=== PATIENT | male | born 1965 | race Caucasian/White ===

== ENCOUNTER 2017-06-16 12:03 | Emergency (ER) | payer OTHER ==
[2017-06-16] MEDS: IBUPROFEN 800 MG TAB PO (13:33)
== END 2017-06-16 13:52 | disposition home or self-care (01) ==
LOC: PHEFT 12:03
DX: M25.561 Pain in right knee (principal); M25.461 Effusion, right knee; F17.290 Nicotine dependence, other tobacco product, uncomplicated; Z88.0 Allergy status to penicillin
CPT/HCPCS: 73564; 99283

== ENCOUNTER 2017-07-23 19:07 | Emergency (ER) | payer OTHER ==
[~2017-07-23] VITALS: Ht 177.8 cm; Wt 105.0 kg
[~2017-07-23 19:07] MED LIST: IBUP1TAB7 PO
[2017-07-23 19:27] VITALS: BP 140/110; PULSE 95; RESP 20; TEMP 98.6; O2SAT 98
--- NOTE | 2017-07-23 19:28 | PD ---
HPI Chief Complaint: BA Time Seen by Provider: 19:23 Travel History International Travel<30 days: No Contact w/Intl Traveler<30days: No Traveled to known affect area: No History of Present Illness HPI This is a 52-year-old male who presents under Mann act initially by the Police Department. According to his paperwork he has been feeling suicidal. Specifically he has had a plan to light himself on fire with gasoline. Symptoms are moderate, duration 4 months, no aggravating or relieving factors, no associated signs or symptoms. He reports daily cocaine use, alcohol use. He denies any auditory visual hallucinations, homicidal ideation. He does not currently have a psychiatrist. He has no acute medical complaints at this time. [facility] Past Medical History Diminished Hearing: No Psychiatric: Yes (esther acted in past) Social History Alcohol Use: Yes (4 pk of beer daily) Tobacco Use: Yes (cigars) Substance Use: Yes (PSA) Allergies-Medications (Allergen,Severity, Reaction): Coded Allergies: Penicillins (Verified Allergy, Unknown, 07/23/17) alprazolam (Verified Allergy, Unknown, 07/23/17) Reported Meds & Prescriptions Reported Meds & Active Scripts Active Review of Systems Except as stated in HPI: all other systems reviewed are Neg Physical Exam Narrative GENERAL: This is a disheveled male who is in no acute distress. SKIN: Warm and dry. HEAD: Atraumatic. Normocephalic. EYES: Pupils equal and round. No scleral icterus. No injection or drainage. ENT: No nasal bleeding or discharge. Mucous membranes pink and moist. NECK: Trachea midline. No JVD. CARDIOVASCULAR: Regular rate and rhythm. No murmur appreciated. RESPIRATORY: No accessory muscle use. Some wheezing noted bilaterally. GASTROINTESTINAL: Abdomen soft, non-tender, nondistended. Hepatic and splenic margins not palpable. MUSCULOSKELETAL: No obvious deformities. Left leg amputation noted. NEUROLOGICAL: Awake and alert. No obvious cranial nerve deficits. Motor grossly within normal limits. Normal speech. PSYCHIATRIC: Appropriate mood and affect; insight and judgment normal. Data Data Last Documented VS Vital Signs Date Time Temp Pulse Resp B/P (MAP) Pulse Ox O2 Delivery O2 Flow Rate FiO2 07/23/17 19:27 98.6 95 20 140/110 (120) 98 Orders Orders Complete Blood Count With Diff (07/23/17 19:23) Comprehensive Metabolic Panel (07/23/17 19:23) Thyroid Stimulating Hormone (07/23/17 19:23) Psych Screen (07/23/17 19:23) Drug Screen, Random Urine (07/23/17 19:23) Alcohol (Ethanol) (07/23/17 19:23) Salicylates (Aspirin) (07/23/17 19:23) Tylenol (Acetaminophen) (07/23/17 19:23) Chest, Single Ap (07/23/17 19:29) Albuterol-Ipratropium Neb (Duoneb Neb) (07/23/17 19:30) Tylenol (Acetaminophen) (07/23/17 20:12) Labs Laboratory Tests Test 07/23/17 19:20 White Blood Count 8.7 TH/MM3 Red Blood Count 5.78 MIL/MM3 Hemoglobin 18.0 GM/DL Hematocrit 50.9 % Mean Corpuscular Volume 88.2 FL Mean Corpuscular Hemoglobin 31.1 PG Mean Corpuscular Hemoglobin Concent 35.3 % Red Cell Distribution Width 14.7 % Platelet Count 275 TH/MM3 Mean Platelet Volume 10.7 FL Neutrophils (%) (Auto) 59.2 % Lymphocytes (%) (Auto) 30.3 % Monocytes (%) (Auto) 7.3 % Eosinophils (%) (Auto) 2.7 % Basophils (%) (Auto) 0.5 % Neutrophils # (Auto) 5.1 TH/MM3 Lymphocytes # (Auto) 2.6 TH/MM3 Monocytes # (Auto) 0.6 TH/MM3 Eosinophils # (Auto) 0.2 TH/MM3 Basophils # (Auto) 0.0 TH/MM3 CBC Comment DIFF FINAL Differential Comment Blood Urea Nitrogen 12 MG/DL Creatinine 0.98 MG/DL Random Glucose 88 MG/DL Total Protein 7.5 GM/DL Albumin 4.0 GM/DL Calcium Level 9.6 MG/DL Alkaline Phosphatase 85 U/L Aspartate Amino Transf (AST/SGOT) 17 U/L Alanine Aminotransferase (ALT/SGPT) 23 U/L Total Bilirubin 0.4 MG/DL Sodium Level 140 MEQ/L Potassium Level 3.4 MEQ/L Chloride Level 106 MEQ/L Carbon Dioxide Level 19.7 MEQ/L Anion Gap 14 MEQ/L Estimat Glomerular Filtration Rate 80 ML/MIN Thyroid Stimulating Hormone 3rd Gen 1.250 uIU/ML Salicylates Level 6.5 MG/DL Acetaminophen Level LESS THAN 2.0 MCG/ML Ethyl Alcohol Level 40 MG/DL MDM Medical Decision Making Medical Screen Exam Complete: Yes Emergency Medical Condition: Yes Medical Record Reviewed: Yes Differential Diagnosis Major depressive disorder, depressive disorder not otherwise specified, acute psychosis, substance-induced mood disorder, adjustment reaction Narrative Course 52-year-old male presents under Mann act for psychiatric evaluation. Mental health screening discussed with the patient. Psychiatric screen ordered. The patient is medically clear for psychiatric disposition. Diagnosis Primary Impression: Medical clearance for psychiatric admission Jaron Fofana Jul 23, 2017 19:28
[2017-07-23] MEDS: RESP: ALBUTEROL 2.5 MG/IPRATROPIUM 0.5 MG NEB (SCH) INH ×2 (19:30→19:45)
--- NOTE | 2017-07-23 20:05 | RADRPT ---
EXAM DATE: 07/23/2017 7:54 PM EDT AGE/SEX: 52 years / Male INDICATIONS: Wheezing. CLINICAL DATA: This is the patient's initial encounter. Patient reports that signs and symptoms have been present for 1 day and indicates a pain score of 0/10. MEDICAL/SURGICAL HISTORY: . Smoker. Chronic drug user (cocaine) . Left leg amputated at the kn ee down. COMPARISON: None. FINDINGS: A single AP view of the chest demonstrates the lungs to be symmetrically aerated without evidence of mass, infiltrate or effusion. The cardiomediastinal contours are unremarkable. Osseous structures a re intact. CONCLUSION: Negative examination. Electronically signed by: Maikol Castro MD 07/23/2017 8:04 PM EDT
[2017-07-23 20:52] LABS: AUTOMATED NEUTROPHIL # 5.1 TH/MM3 (1.8-7.7); BASOPHIL % 0.5 % (0.0-2.0); EOSINOPHIL # 0.2 TH/MM3 (0-0.4); EOSINOPHIL % 2.7 % (0.0-4.0); HEMATOCRIT 50.9 % (39.0-51.0); LYMPH % 30.3 % (9.0-44.0); LYMPHOCYTE # 2.6 TH/MM3 (1.0-4.8); MEAN CELL VOLUME 88.2 FL (80.0-100.0); MEAN CORPUSCULAR HEMOGLOBIN 31.1 PG (27.0-34.0); MEAN CORPUSCULAR HGB CONC 35.3 % (32.0-36.0); MEAN PLATELET VOLUME 10.7 FL (7.0-11.0); MONO % 7.3 % (0.0-8.0); MONOCYTE # 0.6 TH/MM3 (0-0.9); NEUT % 59.2 % (16.0-70.0); PLATELET COUNT 275 TH/MM3 (150-450); RED BLOOD COUNT 5.78 MIL/MM3 (4.50-5.90); RED CELL DISTRIBUTION WIDTH 14.7 % (11.6-17.2); WHITE BLOOD COUNT 8.7 TH/MM3 (4.0-11.0)
[2017-07-23 21:12] LABS: AST (GOT) 17 U/L (15-37); BICARBONATE 19.7 MEQ/L (21.0-32.0); BLOOD UREA NITROGEN 12 MG/DL (7-18); CALCIUM 9.6 MG/DL (8.5-10.1); CHLORIDE 106 MEQ/L (98-107); CREATININE 0.98 MG/DL (0.60-1.30); GLOMERULAR FILTRATION RATE 80 ML/MIN (>89); GLUCOSE,RANDOM 88 MG/DL (74-106); SODIUM (NA) 140 MEQ/L (136-145)
[2017-07-23 21:23] LABS: ALKALINE PHOSPHATASE 85 U/L (45-117); ALT (GPT) 23 U/L (12-78); TOTAL BILIRUBIN ADULT 0.4 MG/DL (0.2-1.0); TOTAL PROTEIN 7.5 GM/DL (6.4-8.2)
[2017-07-23 21:27] LABS: ACETAMINOPHEN LESS THAN 2.0 MCG/ML (10.0-30.0)
[2017-07-24 03:25] VITALS: BP 142/81; PULSE 78; RESP 16; TEMP 98.5; O2SAT 96
[2017-07-24 06:30] VITALS: BP 132/78; PULSE 80; RESP 18; TEMP 98.6; O2SAT 97
--- NOTE | 2017-07-24 12:03 | PD ---
History of Present Illness Chief Complaint: Suicide Ideation/Attempt Time Seen by Provider: 11:55 Travel History International Travel<30 Days: No Contact w/Intl Traveler<30days: No Known affected area: No Legal Status Legal Status: Mann Act Mann Act Signed By: Deedee See Mann Act Comment: 2017 @ 1841 History of Present Illness: History of Present Illness HPI The patient is a 52 years old male,with psychiatric history of antisocial personality disorder, cocaine use disorder, drug-seeking behavior, who he is known in the psychiatric department, he was last evaluated in April 2017 , who presents to the emergency department under Mann act initiated by law enforcement. The affidavit alleges that the patient made suicidal statements about wanting to kill himself and that he wanted to light himself on fire with gasoline. He did not make any attempt to harm himself. EMR reviewed. Patient was seen and evaluated in April 2017. At that time it was determined that the patient was malingering in order to obtain residential. Current toxicology is positive for cocaine and blood alcohol level of 40. Patient is seen. francisco Jones present. Patient is alert. He is demanding to have his right hand looked at and "to be taken to the hand doctor on the second floor." He is also demanding to have his left leg looked at. When I explained to him that he can follow up with his concerns on an outpatient basis he states " I'm just going to go to [facility] ".The patient demands to have food brought to him "right now "as well. There is no evidence of psychosis. I begin to discuss with him discharge and he states ' I am not leaving here. Just trespass me. I will go to intermediate". When informed that he will be discharged he demands to have a ride back to his camper since he does not have his wheel chair. The patient continues to present various demands including needing a respiratory treatment and states " that's why I came here for my breathing". Patient is obviously attempting to find any possible reason to remain here in the hospital. He threatens that he" may go out and get some gasoline and pour it on myself ", however the patient assist of making any attempts at harming himself and continues to request food, a set of crutches, a taxi ride back to his camper as well as assistance for various medical issues. PFSH Past Medical History Hx Anticoagulant Therapy: No Depression: Yes Cardiovascular Problems: Yes Chemotherapy: No Cerebrovascular Accident: No Diabetes: No Diminished Hearing: No Psychiatric: Yes (esther acted in past) Respiratory: No Seizures: Yes (LAST 2010) Tetanus Vaccination: Unknown ?: Not Past Surgical History Hysterectomy: No Psychiatric History Psychiatric History Hx Psychiatric Treatment: ANTISOCIAL PERSONALITY D/O.HX OF SUBSTANCE INDUCED MOOD D/O History of Inpatient Treatment: Yes Guns or firearms in home: No Social History Single male. States his living by himself in a camper. Hx Alcohol Use: Yes (NONE ON DAY OF ADMISSION OCCASIONALLY) Hx Tobacco Use: No Hx Substance Use: No Substance Use Type: Alcohol, Cocaine Other Substances Used: Patient does not wish to discuss any substance use issues Hx of Substance Use Treatment: No Allergies-Medications (Allergen,Severity, Reaction): Coded Allergies: Penicillins (Verified Allergy, Unknown, 07/23/17) alprazolam (Verified Allergy, Unknown, 07/23/17) Reported Meds & Prescriptions Reported Meds & Active Scripts Active Review of Systems Respiratory: COMPLAINS OF: Shortness of breath Musculoskeletal: COMPLAINS OF: Joint pain Neurologic: COMPLAINS OF: Abnormal gait, Poor Balance (Left lower extremity amputee) Except as stated in HPI: all other systems reviewed are Neg Mental Status Examination Appearance: Appropriate, Dirty, Disheveled, Malodorous Consciousness: Alert Orientation: x4 Motor Activity: Other Speech: Unremarkable Language: Adequate Fund of Knowledge: Adequate Attention and Concentration: Adequate Memory: Unremarkable Mood: Irritable Affect: Irritable Thought Process & Associations: Intact, Logical, Goal directed Thought Content: Appropriate Hallucination Type: None Delusion Type: None Suicidal Ideation: No Suicidal Plan: No Suicidal Intention: No Homicidal Ideation: No Homicidal Plan: No Homicidal Intention: No Insight: Poor Judgment: Impulsive MDM Medical Decision Making Medical Record Reviewed: Yes Assessment/Plan The patient is a 52 years old male,with psychiatric history of antisocial personality disorder, cocaine use disorder, drug-seeking behavior, who he is known in the psychiatric department, he was last evaluated in April 2017 , who presents to the emergency department under Mann act initiated by law enforcement. The affidavit alleges that the patient made suicidal statements about wanting to kill himself and that he wanted to light himself on fire with gasoline. The patient does not present evidence of unstable mental illness. He makes various demands for different medical services. He then requests food and transportation back to his camper. Strong antisocial personality qualities are evident in his interaction with staff. Patient presentation is quite manipulative with the goal of obtaining residential, and malingering is suspected to the extent that he has actual psychiatric symptoms. I cannot detect any evidence of a mental illness as defined under the Mann act in this patient at this time. Therefore, he does not meet the Mann act criteria and I have lifted the Mann act. The patient is not interested in addressing any of his substance use issues. He will be provided transportation back to his home. Orders Orders Complete Blood Count With Diff (07/23/17 19:23) Comprehensive Metabolic Panel (07/23/17 19:23) Thyroid Stimulating Hormone (07/23/17 19:23) Psych Screen (07/23/17 19:23) Drug Screen, Random Urine (07/23/17 19:23) Alcohol (Ethanol) (07/23/17 19:23) Salicylates (Aspirin) (07/23/17 19:23) Tylenol (Acetaminophen) (07/23/17 19:23) Chest, Single Ap (07/23/17 19:29) Albuterol-Ipratropium Neb (Duoneb Neb) (07/23/17 19:30) Tylenol (Acetaminophen) (07/23/17 20:12) Diet Regular Basic (07/24/17 Breakfast) Diet Regular Basic (07/24/17 Lunch) Results Vital Signs Date Time Temp Pulse Resp B/P (MAP) Pulse Ox O2 Delivery O2 Flow Rate FiO2 07/24/17 06:30 98.6 80 18 132/78 (96) 97 Room Air 07/24/17 03:25 98.5 78 16 142/81 (101) 96 Room Air 07/23/17 19:27 98.6 95 20 140/110 (120) 98 Laboratory Tests Test 07/23/17 19:20 07/24/17 01:05 White Blood Count 8.7 Red Blood Count 5.78 Hemoglobin 18.0 Hematocrit 50.9 Mean Corpuscular Volume 88.2 Mean Corpuscular Hemoglobin 31.1 Mean Corpuscular Hemoglobin Concent 35.3 Red Cell Distribution Width 14.7 Platelet Count 275 Mean Platelet Volume 10.7 Neutrophils (%) (Auto) 59.2 Lymphocytes (%) (Auto) 30.3 Monocytes (%) (Auto) 7.3 Eosinophils (%) (Auto) 2.7 Basophils (%) (Auto) 0.5 Neutrophils # (Auto) 5.1 Lymphocytes # (Auto) 2.6 Monocytes # (Auto) 0.6 Eosinophils # (Auto) 0.2 Basophils # (Auto) 0.0 CBC Comment DIFF FINAL Differential Comment Blood Urea Nitrogen 12 Creatinine 0.98 Random Glucose 88 Total Protein 7.5 Albumin 4.0 Calcium Level 9.6 Alkaline Phosphatase 85 Aspartate Amino Transf (AST/SGOT) 17 Alanine Aminotransferase (ALT/SGPT) 23 Total Bilirubin 0.4 Sodium Level 140 Potassium Level 3.4 Chloride Level 106 Carbon Dioxide Level 19.7 Anion Gap 14 Estimat Glomerular Filtration Rate 80 Thyroid Stimulating Hormone 3rd Gen 1.250 Salicylates Level 6.5 Acetaminophen Level LESS THAN 2.0 Ethyl Alcohol Level 40 Urine Opiates Screen NEG Urine Barbiturates Screen NEG Urine Amphetamines Screen NEG Urine Benzodiazepines Screen NEG Urine Cocaine Screen POS Urine Cannabinoids Screen NEG Diagnosis Primary Impression: Medical clearance for psychiatric admission Additional Impressions: Antisocial personality disorder Cocaine abuse Psychiatrically Cleared: Yes Med/ Other Pt Specific Info: No Meds Exist/No RX given Disposition: 01 DISCHARGE HOME Condition: Stable Problem Qualifiers Lexii Bauer Jul 24, 2017 12:03
--- NOTE | 2017-07-24 12:24 | PD ---
Physical Exam Date Seen by Provider: Jul 24, 2017 Time Seen by Provider: 12:23 Narrative 52-year-old male previously medically clear for psychiatric evaluation has been seen by psychiatric staff and deemed to be psychiatrically stable for discharge at this time. Patient remains medically stable for discharge. Data Data Last Documented VS Vital Signs Date Time Temp Pulse Resp B/P (MAP) Pulse Ox O2 Delivery O2 Flow Rate FiO2 07/24/17 06:30 98.6 80 18 132/78 (96) 97 Room Air Orders Orders Complete Blood Count With Diff (07/23/17 19:23) Comprehensive Metabolic Panel (07/23/17 19:23) Thyroid Stimulating Hormone (07/23/17 19:23) Psych Screen (07/23/17 19:23) Drug Screen, Random Urine (07/23/17 19:23) Alcohol (Ethanol) (07/23/17 19:23) Salicylates (Aspirin) (07/23/17 19:23) Tylenol (Acetaminophen) (07/23/17 19:23) Chest, Single Ap (07/23/17 19:29) Albuterol-Ipratropium Neb (Duoneb Neb) (07/23/17 19:30) Tylenol (Acetaminophen) (07/23/17 20:12) Diet Regular Basic (07/24/17 Breakfast) Diet Regular Basic (07/24/17 Lunch) Labs Laboratory Tests Test 07/23/17 19:20 07/24/17 01:05 White Blood Count 8.7 TH/MM3 Red Blood Count 5.78 MIL/MM3 Hemoglobin 18.0 GM/DL Hematocrit 50.9 % Mean Corpuscular Volume 88.2 FL Mean Corpuscular Hemoglobin 31.1 PG Mean Corpuscular Hemoglobin Concent 35.3 % Red Cell Distribution Width 14.7 % Platelet Count 275 TH/MM3 Mean Platelet Volume 10.7 FL Neutrophils (%) (Auto) 59.2 % Lymphocytes (%) (Auto) 30.3 % Monocytes (%) (Auto) 7.3 % Eosinophils (%) (Auto) 2.7 % Basophils (%) (Auto) 0.5 % Neutrophils # (Auto) 5.1 TH/MM3 Lymphocytes # (Auto) 2.6 TH/MM3 Monocytes # (Auto) 0.6 TH/MM3 Eosinophils # (Auto) 0.2 TH/MM3 Basophils # (Auto) 0.0 TH/MM3 CBC Comment DIFF FINAL Differential Comment Blood Urea Nitrogen 12 MG/DL Creatinine 0.98 MG/DL Random Glucose 88 MG/DL Total Protein 7.5 GM/DL Albumin 4.0 GM/DL Calcium Level 9.6 MG/DL Alkaline Phosphatase 85 U/L Aspartate Amino Transf (AST/SGOT) 17 U/L Alanine Aminotransferase (ALT/SGPT) 23 U/L Total Bilirubin 0.4 MG/DL Sodium Level 140 MEQ/L Potassium Level 3.4 MEQ/L Chloride Level 106 MEQ/L Carbon Dioxide Level 19.7 MEQ/L Anion Gap 14 MEQ/L Estimat Glomerular Filtration Rate 80 ML/MIN Thyroid Stimulating Hormone 3rd Gen 1.250 uIU/ML Salicylates Level 6.5 MG/DL Acetaminophen Level LESS THAN 2.0 MCG/ML Ethyl Alcohol Level 40 MG/DL Urine Opiates Screen NEG Urine Barbiturates Screen NEG Urine Amphetamines Screen NEG Urine Benzodiazepines Screen NEG Urine Cocaine Screen POS Urine Cannabinoids Screen NEG MDM Medical Record Reviewed: Yes Supervised Visit with SARAH: Yes Narrative Course 52-year-old male previously medically clear for psychiatric evaluation has been seen by psychiatric staff and deemed to be psychiatrically stable for discharge at this time. Patient remains medically stable for discharge. Diagnosis Primary Impression: Medical clearance for psychiatric admission Patient Instructions: General Instructions Departure Forms: Tests/Procedures Disposition: 01 DISCHARGE HOME Condition: Stable Robert Menon Jul 24, 2017 12:24
== END 2017-07-24 12:36 | disposition home or self-care (01) ==
LOC: NEPD 19:07 → NEPJ 07-24 12:36
DX: Z02.89 Encounter for other administrative examinations (principal); F60.2 Antisocial personality disorder; F14.10 Cocaine abuse, uncomplicated; Z72.0 Tobacco use; Z89.612 Acquired absence of left leg above knee; Z86.59 Personal history of other mental and behavioral disorders
CPT/HCPCS: 71045; 80053; 80307; 84443; 85025; 94640; 94664; 99284

== ENCOUNTER 2017-07-30 09:43 | Emergency (ER) | payer MEDICARE, MEDICAID ==
[~2017-07-30] VITALS: Ht 177.8 cm; Wt 101.0 kg
[2017-07-30] MEDS ORDERED: PERC10TA27 PO (09:59)
[2017-07-30] MEDS ORDERED: SOMA250T PO (09:59)
[2017-07-30 10:00] VITALS: BP 126/84; PULSE 89; RESP 16; TEMP 98.8; O2SAT 98
--- NOTE | 2017-07-30 10:14 | PD ---
HPI Chief Complaint: Psychiatric Symptoms Time Seen by Provider: 10:07 Travel History International Travel<30 days: No Contact w/Intl Traveler<30days: No Traveled to known affect area: No History of Present Illness HPI Patient is a 52-year-old male presenting to the emergency department under Mann act for psychiatric evaluation. Please were called to the [facility] because patient was soliciting, when police confronted patient he stated that he was suicidal and would shoot himself with the police officers gun. He reports a previous suicide attempt by cutting his wrist several months ago. He states he has been depressed, he cannot live with his mother because of her . When asked if he felt suicidal before being confronted by the police versus eliciting he stated that he stays depressed. He denies any homicidal ideations or hallucinations. He states he drinks 4 beers a day and if he does not have a beer he gets "F'ed" up. PFSH Past Medical History Hx Anticoagulant Therapy: No Depression: Yes Cardiovascular Problems: Yes Seizures: Yes (LAST 2010) ?: Not Past Surgical History Hysterectomy: No Social History Alcohol Use: Yes (NONE ON DAY OF ADMISSION OCCASIONALLY) Tobacco Use: No Substance Use: No Allergies-Medications (Allergen,Severity, Reaction): Coded Allergies: Penicillins (Verified Allergy, Unknown, 07/30/17) alprazolam (Verified Allergy, Unknown, 07/30/17) Reported Meds & Prescriptions Reported Meds & Active Scripts Active Reported Soma (Carisoprodol) 250 Mg Tab 250 Mg PO QID PRN Percocet (Oxycodone-Acetaminophen) 10-325 mg Tab 1 Tab PO Q4H PRN Review of Systems Except as stated in HPI: all other systems reviewed are Neg Psychiatric: Positive: Suicidal Ideations, Substance Abuse Physical Exam Narrative GENERAL: Overweight, well-developed, alert male. Presenting in no acute distress. Disheveled SKIN: Warm and dry. HEAD: Atraumatic. Normocephalic. EYES: Pupils equal and round. No scleral icterus. No injection or drainage. ENT: No nasal bleeding or discharge. Mucous membranes pink and moist. NECK: Trachea midline. No JVD. CARDIOVASCULAR: Regular rate and rhythm. RESPIRATORY: No accessory muscle use. Clear to auscultation. Breath sounds equal bilaterally. GASTROINTESTINAL: Abdomen soft, non-tender, nondistended. Hepatic and splenic margins not palpable. MUSCULOSKELETAL: Extremities without clubbing, cyanosis, or edema. No obvious deformities. Left AKA NEUROLOGICAL: Awake and alert. No obvious cranial nerve deficits. Motor grossly within normal limits. Five out of 5 muscle strength in the arms and legs. Normal speech. PSYCHIATRIC: Agitated mood and affect; insight and judgment normal. Data Data Last Documented VS Vital Signs Date Time Temp Pulse Resp B/P (MAP) Pulse Ox O2 Delivery O2 Flow Rate FiO2 07/30/17 10:00 98.8 89 16 126/84 (98) 98 [facility] Medical Decision Making Medical Screen Exam Complete: Yes Emergency Medical Condition: Yes Medical Record Reviewed: Yes Interpretation(s) Vital Signs Date Time Temp Pulse Resp B/P (MAP) Pulse Ox O2 Delivery O2 Flow Rate FiO2 07/30/17 10:00 98.8 89 16 126/84 (98) 98 Differential Diagnosis Mood disorder versus substance abuse versus malingering versus suicidal ideations versus depression versus other Narrative Course Patient is a 52-year-old male well-known to the emergency department presenting under Mann act for psychiatric evaluation. Patient's vital signs are stable, medical records reviewed. Patient was seen and evaluated on July 23, 2017. Labs from that date were reviewed, patient's urine drug screen was positive for cocaine, there were no other acute abnormalities noted. Mental health screening discussed with the patient. Psychiatric screen ordered. Patient is medically clear for psychiatric evaluation at this time. Diagnosis Primary Impression: Medical clearance for psychiatric admission Condition: Stable Judit Nelson Jul 30, 2017 10:14
[2017-07-30 14:06] VITALS: BP 159/81; PULSE 83; RESP 20; O2SAT 93
--- NOTE | 2017-07-30 16:50 | PD ---
Physical Exam Date Seen by Provider: Jul 30, 2017 Narrative This patient was brought in earlier today as a Mann Act. He was in the process of being arrested for pain handling in front of my help when he told the police that he was thinking about killing himself. This patient has been seen several times in the recent past. He is a homeless drug abuser who is malingering. He has a diagnosis of antisocial personality disorder. He does not meet criteria for Mann Act. Data Data Last Documented VS Vital Signs Date Time Temp Pulse Resp B/P (MAP) Pulse Ox O2 Delivery O2 Flow Rate FiO2 07/30/17 14:06 83 20 159/81 (107) 93 Room Air 07/30/17 10:00 98.8 Orders Orders Diet Regular Basic (07/30/17 Lunch) Diet Regular Basic (07/30/17 Dinner) Ed Discharge Order (07/30/17 16:48) MDM Supervised Visit with SARAH: Yes Diagnosis Primary Impression: Medical clearance for psychiatric admission Additional Impression: Malingering Disposition: 01 DISCHARGE HOME Condition: Stable Janine Kumar MD Jul 30, 2017 16:50
--- NOTE | 2017-07-30 17:33 | PD ---
History of Present Illness Chief Complaint: Psychiatric Symptoms Time Seen by Provider: 17:16 Travel History International Travel<30 Days: No Contact w/Intl Traveler<30days: No Known affected area: No Legal Status Legal Status: Mann Act History of Present Illness: This is a 52-year-old single, male who was brought into this facility by the [employer] of public safety for leg pain. Patient reports that he was apprehended for "panhandling" he complained of leg pain and was brought to the emergency room. Once here the office her Mann acted him for making suicidal statements. This patient is well-known to this facility and was last admitted from April 27 - April 30 after a suicide attempt by cutting his wrist. Reviewed electronic medical record and discussed case with staff. Labs were not obtained, per medical staff patient had labs done 6 days ago when he was positive for cocaine. Staff informs me that patient has been loud and demanding. Upon coming onto the unit I could hear the patient whistling loudly. When staff checked on him they reported that he requested "clean clothes I have cum all over these". I evaluated the patient in his room and J pod. There was torn bits of a cup and is dirty close thrown all about the room. I found him lying on the bed awake, alert, and oriented 4. His speech is clear, logical, and organized. There is no indication of internal stimulation nor thought blocking. Immediately, upon my entry to his room he stated that he "needs to see a leg doctor to get this leg looked at, I am tired of messing with you people, I am going to go straight to the news journal". Patient reports that he has so far failed to follow-up with any of the outpatient recommendations that if previously been supplied to him. He denies any history of mental illness and states "I do not take any medication for that ". He does report however that he "like my Percocets and somas". Patient endorses suicidal ideation he states that he will "get some gasoline and port over myself and light myself on fire". However, he advises that he is only suicidal if he "does not get what I want". He reports that he has always " hated the ladies but now since that [facility] [address] police officer said I can no longer beg I really hate them". PFSH Past Medical History Medical History: Denies Significant Hx Hx Anticoagulant Therapy: No Depression: Yes Cardiovascular Problems: Yes Seizures: Yes (LAST 2010) ?: Not Past Surgical History Hysterectomy: No Psychiatric History Psychiatric History Patient has been seen in this facility on multiple occasions with a diagnosis of antisocial personality disorder and polysubstance abuse. Hx Psychiatric Treatment: ANTISOCIAL PERSONALITY D/O.HX OF SUBSTANCE INDUCED MOOD D/O History of Inpatient Treatment: Yes Guns or firearms in home: No Social History States that he smokes 1 pack of cigars per day drinks approximately a 4 pack of alcohol each day and reports that he likes "Percocets and somas". He has been seen multiple occasions at this facility with a positive toxicology screen for cocaine. Hx Alcohol Use: Yes (4 PACK/DAY) Hx Tobacco Use: Yes (1PPD) Hx Substance Use: No Substance Use Type: Alcohol, Cocaine Other Substances Used: Patient does not wish to discuss any substance use issues Hx of Substance Use Treatment: No Allergies-Medications (Allergen,Severity, Reaction): Coded Allergies: Penicillins (Verified Allergy, Unknown, 07/30/17) alprazolam (Verified Allergy, Unknown, 07/30/17) Reported Meds & Prescriptions Reported Meds & Active Scripts Active Reported Soma (Carisoprodol) 250 Mg Tab 250 Mg PO QID PRN Percocet (Oxycodone-Acetaminophen) 10-325 mg Tab 1 Tab PO Q4H PRN Review of Systems Musculoskeletal: COMPLAINS OF: Joint pain Except as stated in HPI: all other systems reviewed are Neg Mental Status Examination Appearance: Dirty, Disheveled, Malodorous Consciousness: Alert Orientation: x4 Speech: Unremarkable Language: Adequate Fund of Knowledge: Adequate Attention and Concentration: Adequate Memory: Unremarkable Mood: Irritable Affect: Irritable Thought Process & Associations: Goal directed (On admission) Thought Content: Appropriate Hallucination Type: None Delusion Type: None Suicidal Ideation: Yes (Reports that he "will be suicidal if you do not admit me") Suicidal Plan: Yes (Poor gasoline on myself and light myself on fire) Suicidal Intention: No Homicidal Ideation: No Homicidal Plan: No Insight: Fair Judgment: Impulsive MDM Medical Decision Making Medical Record Reviewed: Yes Assessment/Plan Reviewed electronic medical record and discussed case with staff. Patient was examined in his room in J pod with vik Regan tech present. Patient was found awake, alert, and oriented 4. His speech is clear, logical, and organized. There is no indication of internal stimulation or thought blocking. He is irritable and demanding. He advises that he will be suicidal and or homicidal if he is not admitted and does not receive care for his leg "Pr[place]". However, in the next breath he is future oriented stating that he needs crutches and surgery on his leg to help him feel better. He complains vociferously about that "bitch advertising copy writer who said I can't beg anymore. I've been begging for years. I buy 5-10 [employer] meals per day from begging. All of a sudden the [employer] is getting all uppity or something". By his own admission, patient denies having any previous mental health issues and reported "I do not take any crazy meds". I explained to patient that he does not meet Mann act criteria and would be discharged, I advised him that we would provide him with information for the [facility] to seek outpatient treatment for his leg. , ED physician was consulted and agreed with his assessment. She lifted his Mann act. Patient began acting out upon being told that he was not being admitted he stated, "why can't I stay one night" he then said he wanted to go to that "rehab, so I have some place to stay". The patient then lowered his pants so he could urinate and defecate on the floor while yelling at staff. He has a history of malingering and an attempt to find detention at this facility on multiple occasions previously. While his substance use and antisocial personality disorder do constitute a chronic suicidal risk, there is no reason to believe that an inpatient admission would reduce these risks. As on all previous occasions, patient has been provided with available community and outpatient resources. Orders Orders Diet Regular Basic (07/30/17 Lunch) Diet Regular Basic (07/30/17 Dinner) Ed Discharge Order (07/30/17 16:48) Results Vital Signs Date Time Temp Pulse Resp B/P (MAP) Pulse Ox O2 Delivery O2 Flow Rate FiO2 07/30/17 14:06 83 20 159/81 (107) 93 Room Air 07/30/17 10:00 98.8 89 16 126/84 (98) 98 Diagnosis Primary Impression: Medical clearance for psychiatric admission Additional Impressions: Malingering Adjustment disorder Departure Forms: Tests/Procedures Patient Instructions: General Instructions Additional Instructions: FOLLOW UP WITH [facility] FOLLOW UP WITH PSYCHIATRY RETURN TO THE EMERGENCY DEPARTMENT IF SYMPTOMS PERSIST OR WORSEN [place] [id number] [place], [place] [phone] Disposition: 01 DISCHARGE HOME Condition: Stable Problem Qualifiers Alexandra Huston Jul 30, 2017 17:33
== END 2017-07-30 17:17 | disposition home or self-care (01) ==
LOC: NEDAMB 09:43 → NEPJ 17:17
DX: F43.20 Adjustment disorder, unspecified (principal); R45.851 Suicidal ideations; F32.9 Major depressive disorder, single episode, unspecified; F60.2 Antisocial personality disorder; F19.10 Other psychoactive substance abuse, uncomplicated; Z76.5 Malingerer [conscious simulation]; Z87.891 Personal history of nicotine dependence; Z88.0 Allergy status to penicillin
CPT/HCPCS: 99283